=== PATIENT | female | born 1995 | race Two or more races ===

== ENCOUNTER 2023-08-23 13:59 | Emergency (ER) | payer OTHER ==
[~2023-08-23] VITALS: Ht 160 cm; Wt 65.8 kg
[2023-08-23] MEDS ORDERED: PRENA1 TRUE CO1 EACH PO (14:27)
[2023-08-23] MEDS ORDERED: NIGHTTIME SLEEP25 M1 PO (14:28)
[2023-08-23 16:05] LABS: HEMATOCRIT 40.2 % (36.0-45.00); HEMOGLOBIN 13.6 g/dL (12.0-15.00); MEAN CELL VOLUME 87.2 fL (80.00-100.00); MEAN CORPUSCULAR HEMOGLOBIN 29.4 pg (27.00-32.0); MEAN CORPUSCULAR HGB CONC 33.8 g/dl (32.0-36.0); PLATELET COUNT 321 K/uL (150-450); RED BLOOD COUNT 4.61 M/uL (4.00-6.00); RED CELL DISTRIBUTION WIDTH 12.8 % (11.5-14.5)
[2023-08-23 16:48] LABS: CALCIUM 9.4 mg/dL (8.5-10.1); CREATININE SERUM 0.72 mg/dL (0.55-1.02); GFR 97.91; POTASSIUM 4.19 mEq/L (3.5-5.1)
[2023-08-23] MEDS ORDERED: ONDANSETRON ODT8 MG PO (17:31)
== END 2023-08-23 17:35 | disposition home or self-care (01) ==
LOC: ER 14:00
PROVIDERS: Emergency Medicine
DX: O36.80X0 Pregnancy with inconclusive fetal viability, not applicable or unspecified (principal); O26.859 Spotting complicating pregnancy, unspecified trimester; O26.899 Other specified pregnancy related conditions, unspecified trimester; Z3A.01 Less than 8 weeks gestation of pregnancy

== ENCOUNTER → 2024-02-25 10:44 | Outpatient (CLI) | payer OTHER ==
[~2024-02-25 10:44] MED LIST: NIGHTTIME SLEEP25 M1 PO; ONDANSETRON ODT8 MG PO; PRENA1 TRUE CO1 EACH PO
== END | disposition home or self-care (01) ==
LOC: PRENATAL 10:44
PROVIDERS: ATTEND Obstetrics & Gynecology Maternal & Fetal Medicine
DX: O26.843 Uterine size-date discrepancy, third trimester (principal); O36.8130 Decreased fetal movements, third trimester, not applicable or unspecified; Z3A.32 32 weeks gestation of pregnancy